=== PATIENT | female | born 2000 | race Caucasian/White ===

== ENCOUNTER 2020-03-19 15:26 | Outpatient (NON) | payer OTHER, SELFPAY | END 2020-03-19 15:27 | LOC: CHSLAB 15:28 | PROVIDERS: Visit Provider Nurse Practitioner Family | DX: Z12.4 Encounter for screening for malignant neoplasm of cervix (principal); Z13.89 Encounter for screening for other disorder | CPT/HCPCS: 87491; 87591; 88175; G0145 ==

== ENCOUNTER 2020-06-25 09:28 | Outpatient (CLI) | payer OTHER, SELFPAY ==
--- NOTE | ~2020-06-25 | US_ITS ---
US abdomen complete DATE: 06/25/2020 10:02 INDICATION: Mid abdominal pain TECHNIQUE: Real-time imaging and Doppler evaluation of the abdomen. COMPARISON: 04/2015 ultrasound abdomen FINDINGS: No pancreatic mass lesion is evident. Normal hepatopedal portal venous flow direction. 8 x 11 x 16 mm hypoechoic area of the left hepatic lobe, possibly a hemangioma or fatty infiltration. Otherwise no Hepatic space-occupying mass lesion is evident. 3.5 mm gallbladder polyp. No gallstones or gallbladder wall thickening or abnormal pericholecystic fl uid is evident. Negative sonographic Savage's sign. Common bile duct measures 3 mm, normal. Abdominal aorta is of normal caliber. Flow is demonstrated in the inferior vena cava. Normal splenic size. Right kidney 10.2 cm length, left kidney 11.3 cm. No hydronephrosis of either kidney is evident. IMPRESSION: 3.5 mm gallbladder polyp 8 x 11 x 16 mm hyperechoic left hepatic lesion; consider hemangioma or focal fatty infiltration Reviewed, dictated and finalized at [facility]. Reviewed, dictated and finalized at [facility]. IMPRESSION: 3.5 mm gallbladder polyp 8 x 11 x 16 mm hyperechoic left hepatic lesion; consider hemangioma or focal fa tty infiltration
== END 2020-06-25 09:29 | disposition home or self-care (01) ==
LOC: CHSIMG 09:31
PROVIDERS: PCP Nurse Practitioner Family; Visit Provider Nurse Practitioner Family
DX: R10.9 Unspecified abdominal pain (principal)
CPT/HCPCS: 76700

== ENCOUNTER 2020-06-26 10:12 | Outpatient (CLI) | payer OTHER, SELFPAY ==
[2020-06-26 10:36] LABS: Basophils Absolute Auto 0.04 K/mm3 (0.00-0.10); Basophils Percent Auto 0.4 % (0.0-1.0); Eosinophils Absolute Auto 0.26 K/mm3 (0.02-0.50); Eosinophils Percent Auto 2.7 % (1.0-6.0); Hematocrit 43.5 % (35.0-49.0); Immature Granulocyte Absolute 0.03 K/mm3 (0.00-0.00); Immature Granulocyte Percent A 0.3 % (0.0-0.0); Lymphocytes Absolute Auto 2.28 K/mm3 (1.10-4.50); Lymphocytes Percent Auto 23.9 % (18.0-42.0); Mean Corpuscular HGB Conc 34.5 g/dL (32.0-36.0); Mean Corpuscular Hemoglobin 30.2 pg (27.0-31.0); Mean Corpuscular Volume 87.5 fL (78.0-102.0); Mean Platelet Volume 10.2 fl (9.2-11.8); Monocytes Absolute Auto 0.64 K/mm3 (0.10-0.90); Monocytes Percent Auto 6.7 % (2.0-11.0); Neutrophils Absolute Auto 6.3 K/mm3 (1.7-7.2); Platelet Count Result 341 K/mm3 (150-420); Red Blood Count 4.97 M/mm3 (4.20-5.40); Red Cell Distribution Width 11.9 % (11.6-14.4); White Blood Count 9.5 K/mm3 (4.8-10.8)
[2020-06-26 11:32] LABS: Alanine Aminotransferase 26 U/L (14-59); Albumin Level 4.4 g/dL (3.4-5.0); Alkaline Phosphatase 63 U/L (46-116); Amylase 39 U/L (25-115); Anion Gap 11 mmol/L (8-16); Aspartate Amino Transferase 13 U/L (15-37); Bilirubin,Total 0.4 mg/dL (0.00-1.00); Blood Urea Nitrogen 12 mg/dL (7-18); Calcium 9.2 mg/dL (8.5-10.1); Carbon Dioxide 26 mmol/L (21-32); Chloride 103 mmol/L (98-108); Estimated Glomerular Filt Rate > 60; Glucose 84 mg/dL (70-99); Lipase 86 U/L (73-393); Osmolality Calculated 288 mOsm/kg (285-295); Potassium 4.1 mmol/L (3.5-5.1); Sodium 140 mmol/L (136-145); Total Protein 7.5 g/dL (6.4-8.2)
== END 2020-06-26 10:13 | disposition home or self-care (01) ==
LOC: CHSLAB 10:15
PROVIDERS: PCP Nurse Practitioner Family; Visit Provider Nurse Practitioner Family
DX: R10.9 Unspecified abdominal pain (principal)
CPT/HCPCS: 36415; 80053; 82150; 83690; 85025

== ENCOUNTER 2020-08-25 17:22 | Emergency (ER) | payer OTHER, SELFPAY ==
--- NOTE | ~2020-08-25 | CT_ITS ---
EXAMINATION: CT diagnostic chest wo con DATE: 08/25/2020 19:56 INDICATION: left pleurisy. LEFT SIDE CP TECHNIQUE: Computed tomography (CT) of the chest was performed without intravenous contrast. Addition al 3D reconstructions utilizing coronal maximum intensity projection (MIP) were performed. Automated exposure control and iterative reconstruction technique were employed. The dose-length product was 15 7.91 mGy-cm. COMPARISON: None FINDINGS: Lungs are clear with no pneumonia, pulmonary edema or other pulmonary infiltrates. No pleural effusio n or pneumothorax. Heart size is normal. Small pericardial effusion. Thoracic aorta is normal in saturnino sarahy. No pathologically enlarged thoracic lymphadenopathy. Visualized upper abdomen is unremarkable. M ild pectus excavatum. IMPRESSION: 1. Small pericardial effusion. Clear lungs. Reviewed, dictated and finalized at location [facility].
[2020-08-25 18:13] VITALS: BP 128/79; PULSE 83; RESP 18; TEMP 36.6; O2SAT 100
--- NOTE | 2020-08-25 18:41 | ECG_ITS ---
Measurements Intervals Thompson Rate: 66 P: 3 AL: 197 QRS: 81 QRSD: 94 T: 21 QT: 361 QTc: 379 Interpretive Statements SINUS RHYTHM WITH MARKED SINUS ARRHYTHMIA INCOMPLETE RIGHT BUNDLE BRANCH BLOCK BASELINE ARTIFACT- III, AVF, V2 BORDERLINE ECG Electronically Signed On 08-26-2020 20:42:38 CDT by Maragrito Lozada D.O.
[2020-08-25 19:01] LABS: Basophils Absolute Auto 0.06 K/mm3 (0.00-0.10); Basophils Percent Auto 0.5 % (0.0-1.0); Eosinophils Absolute Auto 0.34 K/mm3 (0.02-0.50); Eosinophils Percent Auto 3.1 % (1.0-6.0); Hematocrit 43.8 % (35.0-49.0); Hemoglobin 14.8 g/dL (12.0-15.0); Immature Granulocyte Absolute 0.02 K/mm3 (0.00-0.00); Immature Granulocyte Percent A 0.2 % (0.0-0.0); Lymphocytes Absolute Auto 2.39 K/mm3 (1.10-4.50); Lymphocytes Percent Auto 21.8 % (18.0-42.0); Mean Corpuscular HGB Conc 33.8 g/dL (32.0-36.0); Mean Corpuscular Hemoglobin 30.3 pg (27.0-31.0); Mean Corpuscular Volume 89.6 fL (78.0-102.0); Mean Platelet Volume 9.9 fl (9.2-11.8); Monocytes Absolute Auto 0.64 K/mm3 (0.10-0.90); Monocytes Percent Auto 5.8 % (2.0-11.0); Neutrophils Absolute Auto 7.5 K/mm3 (1.7-7.2); Neutrophils Percent Auto 68.6 % (50.0-70.0); Platelet Count Result 355 K/mm3 (150-420); Red Blood Count 4.89 M/mm3 (4.20-5.40); Red Cell Distribution Width 11.9 % (11.6-14.4)
--- NOTE | 2020-08-25 19:02 | PC.NURSE ---
pt state she is allergic to all NSAIDS, allergy updated and edp aware.
[2020-08-25 19:21] LABS: Alanine Aminotransferase 18 U/L (14-59); Albumin Level 3.8 g/dL (3.4-5.0); Alkaline Phosphatase 58 U/L (46-116); Anion Gap 13 mmol/L (8-16); Aspartate Amino Transferase < 10 U/L (15-37); Bilirubin,Total 0.3 mg/dL (0.00-1.00); Blood Urea Nitrogen 13 mg/dL (7-18); Calcium 8.8 mg/dL (8.5-10.1); Carbon Dioxide 25 mmol/L (21-32); Chloride 105 mmol/L (98-108); Estimated CRCL calculation 69 ml/min; Estimated Glomerular Filt Rate > 60; Glucose 82 mg/dL (70-99); NT Pro B Type Natriuretic Pept 57 pg/mL (0-125); Osmolality Calculated 295 mOsm/kg (285-295); Potassium 3.8 mmol/L (3.5-5.1); Sodium 143 mmol/L (136-145)
--- NOTE | 2020-08-25 19:21 | ED.CHESTPAIN ---
HPI - Chest Pain General Chief Complaint: Chest Pain Stated Complaint: CHEST PAIN Time Seen by Provider: 08/25/20 18:15 Source: patient Mode of arrival: ambulatory Limitations: no limitations History of Present Illness HPI narrative: lateral left chest pleuritic pain x 2 days. pt is a weed smoker. complaint: chest pain Onset (ago): day(s) Timing of current episode: constant Prior episodes: No Onset: during exertion and associated with drug use Pain location: left chest Pain radiation: back Severity: severe Pain scale (0-10): 8 Quality: aching, heaviness and sharp Relieving factors: nothing Exacerbating factors: exertion and inspiration Treatment prior to arrival: none Related Data Allergies Allergy/AdvReac Type Severity Reaction Status Date / Time ibuprofen Allergy Mild Anaphylaxis Verified 06/21/20 09:13 NSAIDS (Non-Steroidal Allergy Anaphylactic Verified 08/25/20 19:03 Anti-Inflamma Shock Review of Systems Review of Systems: All systems reviewed & are unremarkable except as noted in HPI and below Constitutional: Constitutional: Reports as per HPI and Reports no additional constitutional complaints Eyes: Eyes: Reports as per HPI and Reports no additional eye complaints ENT: Reports system reviewed and no additional complaints, except as documented and Reports as per HPI Cardiovascular: Cardiovascular: Reports as per HPI, Reports no additional cardiovascular complaints and Reports chest pain Respiratory: Respiratory: Reports as per HPI and Reports no additional respiratory complaints Gastrointestinal: Gastrointestinal: Reports as per HPI and Reports no additional gastrointestinal complaints Genitourinary: Genitourinary: Reports no additional female genitourinary complaints and Reports as per HPI Musculoskeletal: Musculoskeletal: Reports no additional musculoskeletal complaints, Reports as per HPI and Reports back pain Integumentary/Breasts: Skin/Breast: Reports system reviewed and no additional complaints, except as docu and Reports as per HPI Neurologic: Reports system reviewed and no additional complaints, except as documented and Reports as per HPI Psychiatric: Psychiatric: Reports no additional psychiatric complaints and Reports as per HPI Endocrine: Endocrine: Reports no additional endocrine complaints and Reports as per HPI Hematologic/Lymphatic: Hematologic/Lymphatic: Reports no additional hematologic/lymphatic complaints and Reports as per HPI Allergic/Immunologic: Allergic/Immunologic: Reports no additional allergic/immunologic complaints and Reports as per HPI PMFSH Past Medical History Medical History (Updated 08/25/20 @ 20:39 by Lisy Day MD) Dysmenorrhea Foot pain GERD (gastroesophageal reflux disease) Migraine NOS/intractable Surgical History Surgical History No history of previous surgery Family History Family History Mother Healthy adult Father Healthy adult FHx: migraine headaches Social History Social History Smoking status: Current every day smoker Tobacco type: e-cigarettes/vaping Alcohol intake: never Substance use: never Substance use type: marijuana Additional living arrangements comments: with parents Gender identity (if verbalized by the patient): Female Spiritual care concerns: No Exam Const: General: healthy appearing, no acute distress and alert Nutritional Appearance: well nourished and thin Orientation/consciousness: patient oriented x3 HENMT: Head: normal to inspection Ears: external ears normal and TM's normal bilaterally General nose exam: Normal external nose present and Normal nares present Face and sinus: normal facial exam Mouth: Yes lip normal and Yes moist mucous membranes Teeth and gingiva: dentition normal Throat: posterior oropharynx normal
[2020-08-25 19:22] LABS: Troponin I < 4.0 ng/L (0.00-60.4)
[2020-08-25] MEDS: KETOROLAC (*BKC) 60 MG/2 ML VIAL IM (19:38)
[2020-08-25 19:43] LABS: Pregnancy On Board Control Positive; Urine Pregnancy Test Negative
[2020-08-25 20:40] VITALS: BP 120/82; PULSE 82; RESP 20; O2SAT 98
== END 2020-08-25 20:47 | disposition home or self-care (01) ==
PROVIDERS: Emergency Provider Emergency Medicine; PCP Nurse Practitioner Family
DX: R07.89 Other chest pain (principal); R09.1 Pleurisy; J40 Bronchitis, not specified as acute or chronic; I31.3 Pericardial effusion (noninflammatory)
CPT/HCPCS: 36415; 71250; 80053; 81025; 83880; 84484; 85025; 93005; 96372; 99283; 99284; J1885

== ENCOUNTER 2020-09-13 12:59 | Outpatient (CLI) | payer OTHER, SELFPAY ==
--- NOTE | 2020-09-13 13:03 | ECHO_ITS ---
Patient Info Name: Zari Lopez Age: 20 years : 2000 Gender: Female Ht: 70 in Wt: 123 lbs BSA: 1.64 m2 HR: 70 bpm BP: 120 / 70 mmHg Heart Rhythm: Sinus Rhythm Technical Quality: Good Exam Date: 09/13/2020 1:11 PM Exam Location: [facility] Patient Status: Outpatient Admit Date: 09/13/2020 Staff Ordering Physician: Jeana Rueda NP Paleontology Teacher: Cris Arias RDCS Attending Provider: Jeana Rueda NP Referring Physician: Mohit PORRAS; Exam Type: CA echo doppler color flow Study Info Indications I30.9 - Acute pericarditis, unspecified - pt could not stand pressure of probe for apical views. unobtainable no measurements no biplane Complete two-dimensional, color flow and Doppler transthoracic echocardiogram is performed. Summary 1. Complete two-dimensional, color flow and Doppler transthoracic echocardiogram is performed. 2. Left ventricular chamber dimension is normal. 3. Left ventricular systolic function is normal, estimated at 50-55%. 4. The left ventricular diastolic function is normal. 5. E/e' 5 is not elevated. 6. There is trace mitral valve regurgitation. 7. There is trace pulmonic regurgitation. Left Ventricle E/e' 5 is not elevated. Left ventricular chamber dimension is normal. Left ventricular systolic function is normal, estimated at 50-55%. The left ventricular diastolic function is normal. Right Ventricle Right ventricular chamber dimension is not well visualized. Left Atria Left atrial chamber dimension is normal. Right Atria Right atrial chamber dimension is normal. Aortic Valve The aortic valve is trileaflet. There is no aortic valve stenosis. There is no aortic valve regurgitation. Pulmonic Valve There is trace pulmonic regurgitation. Mitral Valve There is no mitral valve stenosis. There is trace mitral valve regurgitation. Tricuspid Valve There is no tricuspid valve regurgitation. Pericardium/Pleural There is no pericardial effusion. Inferior Vena Cava Inferior vena cava is not well visualized. Aorta The aortic root size at the sinus of Valsalva is normal. Left Ventricular Outflow Tract Name Value Normal LVOT 2D LVOT Diameter 1.8 cm LVOT Doppler LVOT Peak Velocity 74 cm/s LVOT Peak Gradient 2 mmHg LVOT Mean Gradient 1 mmHg LVOT VTI 13 cm LVOT VTI/AV VTI Ratio 0.7 LVOT Stroke Volume 35 ml Pulmonic Valve Name Value Normal RVOT Doppler RVOT Peak Gradient 1 mmHg PV Doppler PV Peak Velocity 71 cm/s PV Peak Gradient 2 mmHg Mitral Va
== END 2020-09-13 13:00 | disposition home or self-care (01) ==
LOC: CHSIMG 13:00
PROVIDERS: PCP Nurse Practitioner Family; Visit Provider Nurse Practitioner Family
DX: I30.9 Acute pericarditis, unspecified (principal)
CPT/HCPCS: 93306

== ENCOUNTER 2020-11-07 14:22 | Emergency (ER) | payer OTHER, SELFPAY ==
--- NOTE | 2020-11-07 14:35 | ED.NAVMDI ---
HPI - Nausea/Vomiting/Diarrhea General Chief complaint: Nausea/Vomiting/Diarrhea Stated complaint: vomiting since 10 am Time Seen by Provider: 11/07/20 14:35 Source: patient and family Mode of arrival: ambulatory Limitations: no limitations History of Present Illness HPI Narrative: [age] woman with a history of migraines and pericarditis comes emergency department complaining of nausea vomiting and dizziness that started approximately 10:00 a.m. this morning. Patient states she has never had symptoms like this before. She is now having dry heaves having vomited everything she has 8 recently. She states she may have had some coffee-ground appearing vomitus but denies having any blood in her vomitus, diarrhea, fever, cough or cold symptoms, headache, chest pain, abdominal pain, dysuria or sick exposures. Patient states that she smokes marijuana daily. Patient revealed to the nurse that she has had some suicidal thoughts as of late. The patient denies she has a plan and that the thoughts are intermittent. Her mother states the suicidal thoughts seem to come when she is overwhelmed and highly anxious. MD elicited complaint: nausea and vomiting Onset (ago): hour(s) (4) Description of vomiting: food contents Exacerbating factors: none Relieving factors: none Context: marijuana use Associated symptoms: nausea/vomiting and other (Dizziness, both vertiginous and feeling off balance.) Related Data Home Medications Medication Instructions Recorded Confirmed fluoxetine 20 mg capsule 20 mg PO DAILY cap 09/24/20 11/07/20 Allergies Allergy/AdvReac Type Severity Reaction Status Date / Time ibuprofen Allergy Mild Anaphylaxis Verified 09/24/20 13:50 NSAIDS (Non-Steroidal Allergy Anaphylactic Verified 09/24/20 13:50 Anti-Inflamma Shock Review of Systems Review of Systems: All systems reviewed & are unremarkable except as noted in HPI and below Constitutional: Constitutional: Denies chills and Denies fever(s) Eyes: Eyes: Denies change in vision and Denies photophobia ENT: Denies nasal congestion and Denies sore throat Cardiovascular: Cardiovascular: Denies chest pain and Denies radiating jaw, neck or arm pain Respiratory: Respiratory: Denies cough, Denies dyspnea and Denies wheezing Gastrointestinal: Gastrointestinal: Denies abdominal pain, Denies diarrhea, Reports nausea and Reports vomiting Genitourinary: Genitourinary: Denies nocturia and Denies dysuria Musculoskeletal: Musculoskeletal: Denies arthralgias and Denies joint swelling Integumentary/Breasts: Skin/Breast: Denies pruritus, Denies erythema and Denies rash Neurologic: Denies vertigo, Denies dizziness and Denies syncope Hematologic/Lymphatic: Hematologic/Lymphatic: Denies easy bleeding and Denies easy bruising Allergic/Immunologic: Allergic/Immunologic: Denies lip swelling, Denies throat swelling and Denies tongue swelling PMFSH Past Medical History Medical History (Updated 11/07/20 @ 16:57 by Aneudy Liu MD) Dysmenorrhea Foot pain GERD (gastroesophageal reflux disease) Migraine NOS/intractable Surgical History Surgical History No history of previous surgery Family History Family History Mother Healthy adult Father Healthy adult FHx: migraine headaches Social History Social History Smoking status: Never smoker Tobacco type: e-cigarettes/vaping Alcohol intake: never Substance use: current Substance use type: marijuana Additional living arrangements comments: with parents Gender identity (if verbalized by the patient): Female Spiritual care concerns: No Exam Const: General: healthy appearing and alert Orientation/consciousness: patient oriented x3 Limitations: no limitations Other: Moderate acute distress. HENMT: Ears
[2020-11-07 14:39] VITALS: BP 123/93; PULSE 74; RESP 20; TEMP 36.3; O2SAT 100
[2020-11-07] MEDS: ONDANSETRON INJ 4 MG/2 ML VIAL IV PUSH (14:52)
[2020-11-07] MEDS: SODIUM CHLORIDE 0.9% IV 1,000 ML 999 ML IV CONT ×2 (14:54→16:03)
[2020-11-07 15:14] LABS: Basophils Absolute Auto 0.08 K/mm3 (0.00-0.10); Basophils Percent Auto 0.6 % (0.0-1.0); Eosinophils Absolute Auto 0.05 K/mm3 (0.02-0.50); Eosinophils Percent Auto 0.4 % (1.0-6.0); Hematocrit 42.4 % (35.0-49.0); Hemoglobin 14.8 g/dL (12.0-15.0); Immature Granulocyte Absolute 0.04 K/mm3 (0.00-0.00); Immature Granulocyte Percent A 0.3 % (0.0-0.0); Lymphocytes Absolute Auto 1.67 K/mm3 (1.10-4.50); Lymphocytes Percent Auto 13.2 % (18.0-42.0); Mean Corpuscular HGB Conc 34.9 g/dL (32.0-36.0); Mean Corpuscular Hemoglobin 31.4 pg (27.0-31.0); Mean Corpuscular Volume 89.8 fL (78.0-102.0); Monocytes Absolute Auto 0.46 K/mm3 (0.10-0.90); Monocytes Percent Auto 3.6 % (2.0-11.0); Neutrophils Absolute Auto 10.3 K/mm3 (1.7-7.2); Neutrophils Percent Auto 81.9 % (50.0-70.0); Platelet Count Result 403 K/mm3 (150-420); Red Blood Count 4.72 M/mm3 (4.20-5.40); Red Cell Distribution Width 12.1 % (11.6-14.4); White Blood Count 12.6 K/mm3 (4.8-10.8)
--- NOTE | 2020-11-07 15:28 | PC.NURSE ---
Pt still feeling nauseas and starting to vomit again. Dr. Liu notified.
[2020-11-07 15:30] LABS: Alanine Aminotransferase 31 U/L (14-59); Albumin Level 4.7 g/dL (3.4-5.0); Alkaline Phosphatase 52 U/L (46-116); Anion Gap 14 mmol/L (8-16); Aspartate Amino Transferase 33 U/L (15-37); Bilirubin,Total 0.6 mg/dL (0.00-1.00); Blood Urea Nitrogen 8 mg/dL (7-18); Calcium 9.4 mg/dL (8.5-10.1); Carbon Dioxide 24 mmol/L (21-32); Chloride 106 mmol/L (98-108); Estimated CRCL calculation 87 ml/min; Estimated Glomerular Filt Rate > 60; Glucose 96 mg/dL (70-99); Lipase 102 U/L (73-393); Osmolality Calculated 296 mOsm/kg (285-295); Potassium 3.5 mmol/L (3.5-5.1); Sodium 144 mmol/L (136-145); Total Protein 7.9 g/dL (6.4-8.2)
[2020-11-07 15:35] LABS: Lactic Acid Reflex 1.9 mmol/L (0.4-2.0)
[2020-11-07] MEDS: PROMETHAZINE HCL 25 MG/ML AMPUL IM (15:36)
[2020-11-07 15:58] LABS: SARS-CoV-2 RNA PCR Negative (Negative)
--- NOTE | 2020-11-07 16:26 | PC.NURSE ---
Pt ambulated to restroom. No distress noted. Urine specimen walked to lab.
[2020-11-07 16:27] LABS: Add Urine Microscopic? YES; Appearance Urine Clear (Clear); Bilirubin Urine Negative (Negative); Blood Urine Negative (Negative); Color Urine Light Yellow (Yellow); Glucose Urine UA Negative (Negative); Ketones Urine 2+ (Negative); Leukocyte Esterase Ur Negative LEU/UL (Negative); Nitrate Urine Negative (Negative); Protein Urine 1+ (Negative); Urobilinogen Urine 0.2 mg/dL (0.2-1.0); pH Urine 8.5 (5.0-8.0)
[2020-11-07 16:32] LABS: Pregnancy On Board Control Positive; Urine Pregnancy Test Negative
[2020-11-07 16:33] LABS: Bacteria Urine Trace /hpf; Mucus Urine Few /lpf; RBC Urine None seen /hpf (0-2); Squamous Epithelial Cell Urine Few /hpf (Few); WBC Urine None seen /hpf (0-3)
[2020-11-07 16:34] LABS: Amphetamine Screen Urine Negative (Negative); Barbiturate Screen Urine Negative (Negative); Benzodiazepines Screen Urine Negative (Negative); Cannabinoid Screen Urine Positive (Negative); Cocaine Screen Urine Negative (Negative); Methadone Screen Urine Negative (Negative); Opiate Screen Urine Negative (Negative); Phencyclidine Screen Urine Negative (Negative)
[2020-11-07 17:22] VITALS: BP 143/98; PULSE 60; RESP 16; O2SAT 100
[2020-11-07 17:22] LABS: Acetaminophen < 2 ug/mL (10-30); Ethanol < 3 mg/dL (0-6)
== END 2020-11-07 17:22 | disposition home or self-care (01) ==
PROVIDERS: Emergency Provider Emergency Medicine; PCP Family Medicine
DX: E86.0 Dehydration (principal); R11.2 Nausea with vomiting, unspecified; Z20.822 Contact with and (suspected) exposure to COVID-19
CPT/HCPCS: 36415; 80053; 80307; 81001; 81025; 83605; 83690; 85025; 87040; 96361; 96372; 96374; 99283; 99284; C9803; J2405; J2550; J7030; U0003; U0005

== ENCOUNTER 2021-02-25 12:47 | Emergency (ER) | payer OTHER, SELFPAY ==
[2021-02-25 13:03] VITALS: BP 138/96; PULSE 70; RESP 16; TEMP 36.3; O2SAT 100
--- NOTE | 2021-02-25 14:40 | PC.NURSE ---
Pt seen walking out of ED with steady gait.
== END 2021-02-26 03:50 | disposition left against medical advice (07) ==
PROVIDERS: PCP Family Medicine
DX: R42 Dizziness and giddiness (principal)
CPT/HCPCS: 99199

== ENCOUNTER 2022-05-28 07:14 | Emergency (ER) | payer OTHER, SELFPAY ==
--- NOTE | ~2022-05-28 | XR_ITS ---
Portable chest x-ray Comparison: 11/27/2014 Clinical History: Chest pain Findings: Lungs are clear, without focal consolidation or pleural effusion. Cardiomediastinal silho uette is stable. Bones and soft tissues are unremarkable. Impression: Normal chest. Reviewed, dictated and finalized at location . Impression: Normal chest.
[2022-05-28 07:14] VITALS: PULSE 74
[2022-05-28 07:15] VITALS: BP 136/92; PULSE 73; RESP 18; TEMP 35.6; O2SAT 100
--- NOTE | 2022-05-28 07:20 | ECG_ITS ---
Measurements Intervals Ashley Rate: 63 P: -20 NC: 186 QRS: 77 QRSD: 94 T: 44 QT: 384 QTc: 394 Interpretive Statements SINUS RHYTHM WITH SINUS ARRHYTHMIA OTHERWISE NORMAL ECG COMPARED TO ECG 08/25/2020 19:00:06 NO SIGNIFICANT CHANGES Electronically Signed On 05-29-2022 16:32:22 CDT by Cristobal Mejia M.D.
[2022-05-28] MEDS: ACETAMINOPHEN 500 MG TABLET 1000 MG PO (07:27)
--- NOTE | 2022-05-28 07:27 | ED.GENADULT ---
HPI - General Adult General Chief complaint: Chest Pain Stated complaint: abdominal pain Time Seen by Provider: 05/28/22 07:27 History of Present Illness HPI narrative: This is a 22 year at 18 weeks presenting ED with a chief complaint epigastric pain. Patient says that when she woke from sleep she was having pain in the epigastric area. It is a sharp pain, 6/10, and is associated with pain in her collarbone. patient states that she has had pain like this collarbone every couple months for the last several years. The abdominal pain feels similar to abdominal pain she had several years ago when she was dx'd w/ gastritis/gerd although she says it is different now because it is constant and before it would come and go. Patient denies fever chills URI symptoms, nausea/vomiting/diarrhea. She denies urinary symptoms, vaginal discharge/bleeding. The patient does have history of anxiety/panic attacks. Patient was recently let go of her job and has significant stress at home. Patient taken of her anxiety and mood stabilization medicine when she became . Related Data Home Medications Medication Instructions Recorded Confirmed atogepant 60 mg tablet (Qulipta) 60 mg PO DAILY 08/26/21 03/13/22 Allergies Allergy/AdvReac Type Severity Reaction Status Date / Time ibuprofen Allergy Mild Anaphylaxis Verified 05/15/22 15:21 NSAIDS (Non-Steroidal Allergy Anaphylactic Verified 05/15/22 15:21 Anti-Inflamma Shock [facility] Past Medical History Medical History Dysmenorrhea Foot pain GERD (gastroesophageal reflux disease) Migraine NOS/intractable Vasovagal syncope Surgical History Surgical History No history of previous surgery Family History Family History Mother Healthy adult Father Healthy adult FHx: migraine headaches Other Asthma Depression Diabetes mellitus Hypertension Social History Social History Smoking status: Never smoker Tobacco type: e-cigarettes/vaping Alcohol intake: never Substance use: current Substance use type: marijuana Lack of Transportation: No Lack of Food: Never True Current Housing: I Have Housing Concerned About Future Housing: No Difficulty Paying Gas/Electric Bills: No Difficulty Paying for Meds: No Currently Unemployed: No Education: High School Diploma/GED Difficulty w/ Childcare or Family Care: No Living arrangements: with family Additional living arrangements comments: with parents Occupation/Education: unemployed Gender identity (if verbalized by the patient): Female Spiritual care concerns: No Exam Narrative: APPEARANCE: Patient is tearful Head: atraumatic. EYES: EOMI, NOSE: Atraumatic NECK: Trachea midline RESPIRATORY: No increased rate of breathing, clear to auscultation bilaterally CARDIOVASCULAR: RRR, no peripheral edema ABDOMINAL: tenderness to palpation in the epigastric area, The rest the abdomen is soft nontender no guarding or rebound. MUSCULOSKELETAl: No obvious deformities NEURO: Alert. Moving 4/4 extremities SKIN:: Warm, dry. Normal color PSYCHIATRIC: Anxious appearing Course Course Emergency Course: Zych 0800: Signed out to the oncoming physician pending completion of workup. Vital Signs Vital signs: Vital Signs Temperature 35.6 C L 05/28/22 07:15 Pulse Rate 73 05/28/22 07:15 Respiratory Rate 18 05/28/22 07:15 Blood Pressure 136/92 H 05/28/22 07:15 Pulse Oximetry 100 05/28/22 07:15 Oxygen Delivery Room Air 05/28/22 07:15 Temperature 35.6 C L 05/28/22 07:15 Pulse Rate 73 05/28/22 07:15 Respiratory Rate 18 05/28/22 07:15 Blood Pressure 136/92 H 05/28/22 07:15 Pulse Oximetry 100 05/28/22 07:15 Oxygen Delivery Room Air 05/28/22 07:1
[2022-05-28] MEDS: MAG HYDROX/ALUMINUM HYD/SIMETH 30 ML, PHENobarb/HYOSCY/ATROPINE/SCOP 32.4 MG, LIDOCAINE... PO (07:29)
[2022-05-28] MEDS: FAMOTIDINE 20 MG/ISO 50 ML 20 MG/50 ML BAG 100 MG IVPB (07:31)
[2022-05-28] MEDS: SODIUM CHLORIDE 0.9% IV 1,000 ML 999 ML IV CONT (07:33)
[2022-05-28 07:39] LABS: Basophils Absolute Auto 0.06 K/mm3 (0.00-0.10); Basophils Percent Auto 0.6 % (0.0-1.0); Eosinophils Absolute Auto 0.17 K/mm3 (0.02-0.50); Eosinophils Percent Auto 1.7 % (1.0-6.0); Hematocrit 41.2 % (35.0-49.0); Hemoglobin 14.5 g/dL (12.0-15.0); Immature Granulocyte Absolute 0.07 K/mm3 (0.00-0.00); Immature Granulocyte Percent A 0.7 % (0.0-0.0); Lymphocytes Absolute Auto 1.79 K/mm3 (1.10-4.50); Lymphocytes Percent Auto 18.4 % (18.0-42.0); Mean Corpuscular HGB Conc 35.2 g/dL (32.0-36.0); Mean Corpuscular Hemoglobin 31.5 pg (27.0-31.0); Mean Corpuscular Volume 89.6 fL (78.0-102.0); Mean Platelet Volume 9.2 fl (9.2-11.8); Monocytes Absolute Auto 0.47 K/mm3 (0.10-0.90); Monocytes Percent Auto 4.8 % (2.0-11.0); Neutrophils Absolute Auto 7.2 K/mm3 (1.7-7.2); Neutrophils Percent Auto 73.8 % (50.0-70.0); Platelet Count Result 320 K/mm3 (150-420); Red Cell Distribution Width 12.5 % (11.6-14.4); White Blood Count 9.7 K/mm3 (4.8-10.8)
[2022-05-28] MEDS: ONDANSETRON INJ 4 MG/2 ML VIAL IV PUSH (07:45)
[2022-05-28 08:06] LABS: Alanine Aminotransferase 18 U/L (14-59); Albumin Level 3.8 g/dL (3.4-5.0); Alkaline Phosphatase 57 U/L (46-116); Anion Gap 9 mmol/L (8-16); Aspartate Amino Transferase 14 U/L (15-37); Bilirubin,Total 0.4 mg/dL (0.00-1.00); Blood Urea Nitrogen 9 mg/dL (7-18); Carbon Dioxide 29 mmol/L (21-32); Chloride 100 mmol/L (98-108); Estimated CRCL calculation 101 ml/min; Estimated Glomerular Filt Rate > 60; Glucose 90 mg/dL (70-99); Lipase 31 U/L (16-77); Osmolality Calculated 284 mOsm/kg (285-295); Potassium 3.8 mmol/L (3.5-5.1); Sodium 138 mmol/L (136-145); Total Protein 7.8 g/dL (6.4-8.2)
[2022-05-28 08:20] VITALS: BP 121/90; PULSE 60; RESP 18; TEMP 35.6; O2SAT 100
== END 2022-05-28 08:35 | disposition home or self-care (01) ==
LOC: CHSED 08:15
PROVIDERS: Emergency Provider Emergency Medicine; PCP Family Medicine
DX: O26.892 Other specified pregnancy related conditions, second trimester (principal); K29.70 Gastritis, unspecified, without bleeding; Z3A.18 18 weeks gestation of pregnancy
CPT/HCPCS: 36415; 71045; 80053; 83690; 85025; 93005; 96365; 96375; 99284; A9270; J2405; J7030

== ENCOUNTER 2022-08-13 10:02 | Outpatient (CLI) | payer MEDICAID, SELFPAY ==
[2022-08-13 11:29] LABS: Basophils Absolute Auto 0.05 K/mm3 (0.00-0.10); Basophils Percent Auto 0.4 % (0.0-1.0); Eosinophils Percent Auto 0.8 % (1.0-6.0); Hemoglobin 12.4 g/dL (12.0-15.0); Immature Granulocyte Absolute 0.13 K/mm3 (0.00-0.00); Lymphocytes Absolute Auto 1.67 K/mm3 (1.10-4.50); Lymphocytes Percent Auto 13.4 % (18.0-42.0); Mean Corpuscular HGB Conc 34.4 g/dL (32.0-36.0); Mean Corpuscular Hemoglobin 32.2 pg (27.0-31.0); Mean Corpuscular Volume 93.5 fL (78.0-102.0); Mean Platelet Volume 9.4 fl (9.2-11.8); Monocytes Absolute Auto 0.62 K/mm3 (0.10-0.90); Neutrophils Absolute Auto 9.9 K/mm3 (1.7-7.2); Neutrophils Percent Auto 79.4 % (50.0-70.0); Platelet Count Result 254 K/mm3 (150-420); Red Blood Count 3.85 M/mm3 (4.20-5.40); Red Cell Distribution Width 12.7 % (11.6-14.4); White Blood Count 12.5 K/mm3 (4.8-10.8)
[2022-08-13 12:26] LABS: Glucose 1 Hour PP 50gm Dose 106 mg/dL (70-130)
== END 2022-08-13 10:03 | disposition home or self-care (01) ==
LOC: CHSLAB 10:04
PROVIDERS: PCP Obstetrics & Gynecology; Visit Provider Registered Nurse
DX: Z34.90 Encounter for supervision of normal pregnancy, unspecified, unspecified trimester (principal)
CPT/HCPCS: 36415; 82947; 85025

== ENCOUNTER 2022-08-28 12:34 | Outpatient (CLI) | payer MEDICAID, SELFPAY ==
--- NOTE | ~2022-08-28 | US_ITS ---
EXAMINATION: US OB follow up DATE: 08/28/2022 13:21 INDICATION: Size less than dates. Third trimester. TECHNIQUE: Real-time ultrasound of the pelvis was performed. COMPARISON: None. FINDINGS: There is a single living fetus in vertex presentation. The placenta is fundal. heart rate is 1 32 beats per minute (bpm). The amniotic fluid volume is subjectively normal. The following biometric data were obtained: Biparietal diameter (BPD): 7.9 cm; head circumference (HC): 27.5 cm; abdominal circumference (AC): 24 .5 cm; femur length (FL): 5.6 cm. These measurements are discordant with low FL/BPD ratio. Estimated weight is 1372 g +/- 206 g, which correlates with the 4th percentile when 10/30/22 is used as estimated date of delivery. As single measurements, these parameters are each equal to the following estimated gestational ages: BPD: 34 weeks 5 days. HC: 30 weeks 0 days. AC: 28 weeks 5 days. FL: 29 weeks 4 days. estimated gestational age based solely on measurements from this exam is 30 weeks 0 days +/- 2 weeks 1 days. IMPRESSION: 1. Single living fetus in vertex presentation. 2. Small for gestational age. Estimated weight is 1372 g +/- 206 g, which correlates with the 4th percentile when 10/30/22 is used as estimated date of delivery. 3. Discordant biometrics with low FL/BPD ratio. Reviewed, dictated and finalized at location [facility]. IMPRESSION: 1. Single living fetus in vertex presentation. 2. Small for gestational age. Estimated weight is 1372 g +/- 206 g, whic h correlates with the 4th percentile when 10/30/22 is used as estimated date of delivery. 3. Discordant biometrics with low FL/BPD ratio.
== END 2022-08-28 12:35 | disposition home or self-care (01) ==
LOC: CHSIMG 12:36
PROVIDERS: PCP Obstetrics & Gynecology; Visit Provider Obstetrics & Gynecology
DX: O26.849 Uterine size-date discrepancy, unspecified trimester (principal); O36.5990 Maternal care for other known or suspected poor fetal growth, unspecified trimester, not applicable or unspecified
CPT/HCPCS: 76816

== ENCOUNTER 2022-09-04 15:54 | Outpatient (RCR) | payer MEDICAID, SELFPAY ==
--- NOTE | ~2022-09-04 | US_ITS ---
EXAMINATION: US OB limited, US umbilical doppler DATE: 09/04/2022 18:30 (accession [id number]), 09/04/2022 18:31 (accession [id number]) INDICATION: TECHNIQUE: Real-time transabdominal obstetric ultrasound. Umbilical Doppler ultrasound examination. FINDINGS: No prior studies for comparison. There is a single living fetus in vertex presentation. The placenta is fundal/left without placenta previa. cardiac activity and movement is noted with a heart rate of 129 beats per minute. T he amniotic fluid volume is normal. MASOOD measures 16 cm The following biometric data were obtained: BPD: 71mm corresponds to gestational age 28 weeks 3 days. Head circumference: 286mm corresponds to gestational age 31 weeks 3 days. Abdominal circumference: 247mm corresponds to gestational age 28 weeks 6 days. Femur length: 55mm corresponds to gestational age 29 weeks 1 days. Estimated weight: 1355grams +/- 203grams, 3.7%, although this could be technical given the gilbert mated weight is less than on prior examination dated 08/28/2022..] Umbilical artery pulsed Doppler demonstrates peak systolic to end-diastolic velocity ratios (S/D rati os) of 2.85 (5th percentile = 2.16, 95th percentile = 3.8). IMPRESSION: 1. Single living intrauterine in vertex presentation with an estimated gestational age of 31 weeks 0 days by inititial ultrasound. EDC by initial ultrasound is 11/06/2022. 2. Normal placenta. 3: Normal umbilical Doppler examination. Reviewed, dictated and finalized at location A. IMPRESSION: 1. Single living intrauterine in vertex presentation with an estimat ed gestational age of 31 weeks 0 days by inititial ultrasound. EDC by initial u ltrasound is 11/06/2022. 2. Normal placenta. 3: Normal umbilical Doppler examination.
[2022-09-04 18:05] VITALS: BP 111/70; PULSE 78
--- NOTE | 2022-09-04 18:30 | PC.NURSE ---
Dr Rodriguez called via development writer and informed of doppler measurements and MASOOD. orders to discharge patient to home and remind her of her appointment at [facility] on Thursday.
== END 2022-11-19 11:45 | disposition home or self-care (01) ==
LOC: ANHOBOP 15:54
PROVIDERS: Visit Provider Obstetrics & Gynecology
DX: O36.5930 Maternal care for other known or suspected poor fetal growth, third trimester, not applicable or unspecified (principal); Z3A.32 32 weeks gestation of pregnancy
CPT/HCPCS: 59025; 76815; 76820

== ENCOUNTER 2022-09-25 14:35 | Outpatient (CLI) | payer OTHER, SELFPAY ==
[2022-09-25 14:54] LABS: Basophils Absolute Auto 0.06 K/mm3 (0.00-0.10); Basophils Percent Auto 0.4 % (0.0-1.0); Eosinophils Absolute Auto 0.11 K/mm3 (0.02-0.50); Eosinophils Percent Auto 0.8 % (1.0-6.0); Hematocrit 40.7 % (35.0-49.0); Hemoglobin 14.2 g/dL (12.0-15.0); Immature Granulocyte Absolute 0.16 K/mm3 (0.00-0.00); Immature Granulocyte Percent A 1.1 % (0.0-0.0); Lymphocytes Absolute Auto 1.75 K/mm3 (1.10-4.50); Mean Corpuscular HGB Conc 34.9 g/dL (32.0-36.0); Mean Corpuscular Hemoglobin 32.5 pg (27.0-31.0); Mean Corpuscular Volume 93.1 fL (78.0-102.0); Mean Platelet Volume 9.9 fl (9.2-11.8); Monocytes Absolute Auto 0.72 K/mm3 (0.10-0.90); Monocytes Percent Auto 4.9 % (2.0-11.0); Neutrophils Absolute Auto 11.8 K/mm3 (1.7-7.2); Neutrophils Percent Auto 80.8 % (50.0-70.0); Platelet Count Result 297 K/mm3 (150-420); Red Blood Count 4.37 M/mm3 (4.20-5.40); Red Cell Distribution Width 12.4 % (11.6-14.4); White Blood Count 14.6 K/mm3 (4.8-10.8)
[2022-09-25 15:33] LABS: HIV 1 P24 AG Negative (Negative); HIV 1/2 AB Negative (Negative)
[2022-09-28 16:18] LABS: RPR Screen Non-Reactive (Non-Reactive)
== END 2022-09-25 14:36 | disposition home or self-care (01) ==
LOC: CHSLAB 14:37
PROVIDERS: PCP Obstetrics & Gynecology; Visit Provider Obstetrics & Gynecology
DX: O09.93 Supervision of high risk pregnancy, unspecified, third trimester (principal); Z3A.00 Weeks of gestation of pregnancy not specified
CPT/HCPCS: 36415; 85025; 86592; 87806

== ENCOUNTER 2022-10-09 00:01 | Inpatient (IN) | payer OTHER, SELFPAY ==
[2022-10-09] VITALS (129 sets, daily range): BP systolic 101–141; BP diastolic 46–102; PULSE 54–150; RESP 16; TEMP 36.3–37.2; O2SAT 69–100; BMI 22.8
--- NOTE | 2022-10-09 00:27 | LDADM ---
This patient, Zari Lopez, was admitted to Labor/Delivery/Recovery 107 on 10/09/22 at 00:01. Plans for labor, pain management and were discussed with patient. Patient/family oriented to hospital policies and general routines including ID bracelet, bed and alarms, visiting hours, pain management, procedures, bathroom and other care routines, personal items, smoking policy, room service/diet and guest tray routines, infant security routines, and visiting hours. Patient/Family are encouraged to report perceived risks to care and to ask questions if they do not understand what they are told or what they should do. See OBIX for further documentation.
[2022-10-09 01:11] LABS: Basophils Absolute Auto 0.1 K/mm3 (0.0-0.1); Basophils Percent Auto 0.5 % (0.2-1.2); Eosinophils Absolute Auto 0.4 K/mm3 (0-0.3); Eosinophils Percent Auto 2.2 % (0-4.4); Hematocrit 38.4 % (37.0-47.0); Hemoglobin 13.7 g/dL (12.0-15.0); Immature Granulocyte Absolute 0.14 K/mm3 (0.00-0.031); Immature Granulocyte Percent A 0.9 % (0-0.5); Lymphocytes Absolute Auto 2.31 K/mm3 (0.9-3.2); Lymphocytes Percent Auto 14.7 % (18.3-44.2); Mean Corpuscular HGB Conc 35.7 g/dl (32-36); Mean Corpuscular Volume 92.5 fl (80-100); Mean Platelet Volume 10.3 fl (7.4-10.4); Monocytes Percent Auto 6.2 % (2.6-8.5); Neutrophils Absolute Auto 11.8 K/mm3 (1.3-6.7); Neutrophils Percent Auto 75.5 % (45.5-73.1); Platelet Count Result 298 k/mm3 (150-375); Red Blood Count 4.15 M/mm3 (4.2-5.4); Red Cell Distribution Width 12.3 % (11.5-14.5); White Blood Count 15.7 K/mm3 (4.5-10.0)
[2022-10-09] MEDS: DINOPROSTONE 10 MG VAG INSERT VAGINAL (01:30)
[2022-10-09] MEDS: AMPICILLIN 2 GM/NS 100 ML 2 GM/100 ML BAG IVPB (07:42)
[2022-10-09] MEDS: LACTATED RINGERS 1,000 ML 125 ML IV CONT ×2 (07:43→15:00)
[2022-10-09] MEDS: AMPICILLIN 1 GM/NS 50 ML 1 GM/50 ML BAG IVPB ×2 (11:36→15:28)
[2022-10-09] MEDS: OXYTOCIN 30 UNITS/NS 500 ML 30 UNITS/500 ML BAG 6 UNITS IV CONT (12:09)
[2022-10-09] MEDS: fentaNYL CITRATE INJ (*CRX) 100 MCG/2 ML VIAL 50 MCG IV PUSH (12:35)
[2022-10-09] MEDS: fentaNYL CITRATE INJ (*CRX) 100 MCG/2 ML VIAL IV PUSH (13:50)
--- NOTE | 2022-10-09 14:16 | WPDANESEPP ---
Anes - Eval Pre Procedure Procedure: Labor epidural Date/Time: 10/09/22 14:16 Surgeon: Jennifer Preop Diagnosis: Pain during labor Pre Op Diagnosis: IOL Patient Data Age: 22 Gender: F Height: 1.78 m Weight: 72.1 kg Last Vital Signs Temp 37.2 C 10/09/22 11:00 Pulse 74 10/09/22 14:01 Resp 16 10/09/22 05:33 BP 132/86 10/09/22 14:01 O2 Del Method Room Air 10/09/22 00:27 Allergies Allergy/AdvReac Type Severity Reaction Status Date / Time ibuprofen Allergy Mild Anaphylaxis Verified 10/02/22 15:14 NSAIDS (Non-Steroidal Allergy Anaphylactic Verified 10/02/22 15:14 Anti-Inflamma Shock Home Medications Medication Instructions Recorded Confirmed Type vitamin#17-carbonyl 1 tablet PO DAILY 10/01/22 10/01/22 History [id number] 90 mg-1 mg-50 mg tablet Laboratory Tests 10/09/22 01:04 WBC 15.7 H K/mm3 (4.5-10.0) RBC 4.15 L M/mm3 (4.2-5.4) Hgb 13.7 g/dL (12.0-15.0) Hct 38.4 % (37.0-47.0) MCV 92.5 fl (80-100) MCH 33.0 pg (26-34) MCHC 35.7 g/dl (32-36) RDW 12.3 % (11.5-14.5) Plt Count 298 k/mm3 (150-375) MPV 10.3 fl (7.4-10.4) Immature Gran % (Auto) 0.9 H % (0-0.5) Neut % (Auto) 75.5 H % (45.5-73.1) Lymph % (Auto) 14.7 L % (18.3-44.2) Morton % (Auto) 6.2 % (2.6-8.5) Eos % (Auto) 2.2 % (0-4.4) Baso % (Auto) 0.5 % (0.2-1.2) Lymph # (Auto) 2.31 K/mm3 (0.9-3.2) Morton # (Auto) 1.0 H K/mm3 (0.1-0.6) Eos # (Auto) 0.4 H K/mm3 (0-0.3) Baso # (Auto) 0.1 K/mm3 (0.0-0.1) Abs Immat Gran (auto) 0.14 H K/mm3 (0.00-0.031) Absolute Neuts (auto) 11.8 H K/mm3 (1.3-6.7) Absolute Nucleated RBC 0.0 K/mm3 (0.0-0.012) Nucleated RBC % 0.0 % (0.0-0.2) RPR Pending Blood Type O Positive Antibody Screen Negative Patient hx anesthesia problems: none Family hx anesthesia problems: none Results Review: All pre-operative results and documents have been reviewed as part of the pre-operative evaluation. [facility] Past Medical History Medical History Dysmenorrhea Foot pain GERD (gastroesophageal reflux disease) Migraine NOS/intractable Vasovagal syncope Surgical History Surgical History No history of previous surgery Family History Family History Mother Healthy adult Father Healthy adult FHx: migraine headaches Other Asthma Depression Diabetes mellitus Hypertension Social History Social History Smoking status: Never smoker Tobacco type: e-cigarettes/vaping Second hand tobacco smoke exposure: No Alcohol intake: never Substance use: never Substance use type: marijuana Lack of Transportation: No Lack of Food: Never True Current Housing: I Do Not Have Housing Concerned About Future Housing: No Difficulty Paying Gas/Electric Bills: No Difficulty Paying for Meds: No Currently Unemployed: No Education: High School Diploma/GED Difficulty w/ Childcare or Family Care: No Living arrangements: with family Additional living arrangements comments: with parents Occupation/Education: occupation Gender identity (if verbalized by the patient): Female Sexual Orientation (if Verbalized by the Patient): Straight or Heterosexual Spiritual care concerns: No Exam Day of Procedure 10/09/22 14:16 Patient weight: normal Heart: regular rate and rhythm Lungs: clear to auscultation Airway: Mallampati scale class II Neurological: alert and oriented
[2022-10-09 17:04] LABS: Rapid Plasma Reagin Non-Reactive (NonReactive)
--- NOTE | 2022-10-09 19:27 | P.PCNOB_ITS ---
OB - Delivery Note Procedure Delivery date: 10/09/22 Procedure: Spontaneous vaginal delivery Events: Intrauterine Growth Restriction (IUGR) Induction method: AROM and Per Misoprostol Protocol Delivery augmentation: Rupture of Membranes and Pitocin Delivery monitor: External FHT Route of delivery: Laceration Description: None Specimen: Yes (placenta and cord) Quantitative Blood Loss (ml): 150 Anesthesia type: Epidural Disposition: Floor Complications: None Narrative: She was admitted IUGR. She had cervidil. Ampicillin started for GBS carrier. She had AROM at approximately 1130. Clear fluid. Cervidil removed at that time. Pitocin subsequently started. She dilated to complete and delivered a male infant. Tight nuchal cord surgicall y reduced. Placenta delivered spontaneously and intact. No lacerations. Baby Date of : 10/09/22 Time of : 19:18 Weeks of gestation at delivery: 37 gender: Male presentation: vertex position: Left Occiput Anterior Placenta delivery description: Spontaneous Cord Vessel Description: 3 Vessels, Tight and Reduced (surgically) score one minute: 8 score five minutes: 9 AMG Delivery Billing Delivery Delivery: Delivery Charge
--- NOTE | 2022-10-09 19:30 | PM.IMHP ---
H&P: HPI History of Present Illness Date/Time: 10/09/22 19:30 Chief Complaint: MIL Narrative: Patient at 37 weeks by 9 week ultrasound not consistent with last. Admitted for severe IUGR. course also significant for having a history of vasovagal symptoms and she had also had a history of pericarditis with questionable heart findings. 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 Not had any type cardiac symptoms during . She has a history of migraines which did not cause any significant issues during . She has been followed by Neurology. Also history of anxiety depression which she self stopped her medication when she found out she was and did not have any problems or concerns with it during . She has been followed for IUGR and has had reassuring testing and recommendation for delivery at 37 weeks. History of marijuana use which she has stopped during the . GBS performed last week and was positive. Review of Systems Review of Systems: All systems reviewed & are unremarkable except as noted in HPI and below Constitutional: Constitutional: Reports no additional constitutional complaints and Denies headache(s) Eyes: Eyes: Denies spots in vision ENT: Reports system reviewed and no additional complaints, except as documented and Denies headache(s) Cardiovascular: Cardiovascular: Denies chest pain and Denies dyspnea Respiratory: Respiratory: Denies dyspnea Gastrointestinal: Gastrointestinal: Reports no additional gastrointestinal complaints Genitourinary: Genitourinary: Reports amenorrhea Musculoskeletal: Musculoskeletal: Reports no additional musculoskeletal complaints Integumentary/Breasts: Skin/Breast: Denies breast mass and Denies rash Neurologic: Denies headache(s) Psychiatric: Psychiatric: Reports no additional psychiatric complaints [facility] Past Medical History Medical History Dysmenorrhea Foot pain GERD (gastroesophageal reflux disease) Migraine NOS/intractable Vasovagal syncope Surgical History Surgical History No history of previous surgery Family History Family History Mother Healthy adult Father Healthy adult FHx: migraine headaches Other Asthma Depression Diabetes mellitus Hypertension Social History Social History Smoking status: Never smoker Tobacco type: e-cigarettes/vaping Second hand tobacco smoke exposure: No Alcohol intake: never Substance use: never Substance use type: marijuana Lack of Transportation: No Lack of Food: Never True Current Housing: I Do Not Have Housing Concerned About Future Housing: No Difficulty Paying Gas/Electric Bills: No Difficulty Paying for Meds: No Currently Unemployed: No Education: High School Diploma/GED Difficulty w/ Childcare or Family Care: No Living arrangements: with family Additional living arrangements comments: with parents Occupation/Education: occupation Gender identity (if verbalized by the patient): Female Sexual Orientation (if Verbalized by the Patient): Straight or Heterosexual Spiritual care concerns: No Meds Home Medications and Allergies Home Medications Medication Instructions Recorded Confirmed Type vitamin#17-carbonyl 1 tablet PO DAILY 10/01/22 10/01/22 History [id number]-[id number]-[id number] 90 mg-1 mg-50 mg tablet Allergies Allergy/AdvReac Type Severity Reaction Status Date / Time ibuprofen Allergy Mild Anaphylaxis Verified 10/02/22 15:14 NSAIDS (Non-Steroidal Allergy Anaphylactic Verified 10/02/22 15:14 Anti-Inflamma Shock Vital Signs Vital Sig
--- NOTE | 2022-10-09 19:31 | PM.OBPNVD ---
OB - PN: Subj Subjective Date/time seen: 10/09/22 1130 Interval history: fht 125, Cat 1, cervix 1.5/70/-1, AROM clear. OB - PN: Obj Data Labs 10/09/22 01:04 Labs: Laboratory Results - last 24 hr 10/09/22 01:04 WBC 15.7 H RBC 4.15 L Hgb 13.7 Hct 38.4 MCV 92.5 MCH 33.0 MCHC 35.7 RDW 12.3 Plt Count 298 MPV 10.3 Immature Gran % (Auto) 0.9 H Neut % (Auto) 75.5 H Lymph % (Auto) 14.7 L Caswell % (Auto) 6.2 Eos % (Auto) 2.2 Baso % (Auto) 0.5 Lymph # (Auto) 2.31 [place]well # (Auto) 1.0 H Eos # (Auto) 0.4 H Baso # (Auto) 0.1 Abs Immat Gran (auto) 0.14 H Absolute Neuts (auto) 11.8 H Absolute Nucleated RBC 0.0 Nucleated RBC % 0.0 RPR Non-reactive Blood Type O Positive Antibody Screen Negative OB - PN A/P Time Spent With Patient Time: Total time spent is greater than 50% in coordination of care (as documented) at patient's floor/unit and/or counseling patient:
[2022-10-09] MEDS: OXYTOCIN 30 UNITS/NS 500 ML 30 UNITS/500 ML BAG 125 UNITS IV CONT (19:49)
--- NOTE | 2022-10-09 22:22 | OBPPTRN ---
Patient transferred to post room #292 via w/c. Support person present. Oriented to unit, room, information board, rooming in, admission packet and security measures. Patient verbalizes understanding.
[2022-10-10 04:00] VITALS: BP 115/68; PULSE 52; RESP 18; TEMP 36.7
[2022-10-10 04:42] LABS: Hematocrit 35.6 % (37.0-47.0); Hemoglobin 12.2 g/dL (12.0-15.0)
[2022-10-10] MEDS: ACETAMINOPHEN 325 MG TABLET 650 MG PO ×2 (07:41→16:42)
[2022-10-10 09:10] VITALS: BP 118/68; PULSE 70; RESP 16; TEMP 36.6; O2SAT 100
--- NOTE | 2022-10-10 12:23 | WPDANLDPN2 ---
Anes-Prog Note L&D Date/Time: 10/10/22 12:23 Neuro status: Neuro function grossly intact. Cardiovascular status: normal Respiratory status: normal Airway patency: baseline Mental status: baseline Post-Op hydration status: normal Vital Signs: Last Vital Signs Temp 36.6 C 10/10/22 09:10 Pulse 70 10/10/22 09:10 Resp 16 10/10/22 09:10 BP 118/68 10/10/22 09:10 Pulse Ox 100 10/10/22 09:10 O2 Del Method Room Air 10/10/22 08:00 Pain score (VAS): 0 I/O: Intake & Output 10/09/22 10/10/22 10/10/22 23:59 07:59 15:59 Intake Total 500 Output Total 500 Balance -500 500 Post-procedural complaints: none Patient feedback: Patient satisfied with anesthetic care.
[2022-10-10 12:33] VITALS: BP 123/77; PULSE 62; RESP 18; TEMP 36.7; O2SAT 100
--- NOTE | 2022-10-10 12:51 | PM.OBPNVD ---
OB - PN: Subj Subjective Date/time seen: 10/10/22 12:51 Patient comments: pain well controlled, tolerating diet and other (Decreasing lochia.) baby status: doing well and nursing well OB - PN: Obj Data Labs 10/10/22 04:04 Labs: Laboratory Results - last 24 hr 10/09/22 10/10/22 01:04 04:04 Hgb 12.2 Hct 35.6 L RPR Non-reactive OB - PN A/P Assessment and Plan (1) Vaginal delivery: Code(s): O80 - Encounter for full-term uncomplicated delivery Status: Acute Plan day: 1 Plan: routine care Comments: Patient doing well. Time Spent With Patient Time: Total time spent is greater than 50% in coordination of care (as documented) at patient's floor/unit and/or counseling patient: Exam Psych: Affect: normal affect Other: Abd: fundus firm below -4 umbilicus, nontender Ext: nontender
[2022-10-10 16:50] VITALS: BP 118/79; PULSE 86; RESP 18; TEMP 36.4; O2SAT 98
[2022-10-10 21:00] VITALS: BP 119/79; PULSE 72; RESP 18; TEMP 37; O2SAT 96
[2022-10-11] MEDS: ACETAMINOPHEN 325 MG TABLET 650 MG PO ×2 (00:30→09:58)
--- NOTE | 2022-10-11 08:53 | PM.OBDSVD ---
DS: Admitting Diagnosis Discharge Date 10/11/22 Admitting Diagnosis IOL IUGR DS: Discharge Diagnosis Discharge Diagnosis (1) Vaginal delivery: Code(s): O80 - Encounter for full-term uncomplicated delivery Status: Acute (2) growth restriction antepartum: Code(s): O36.5990 - Maternal care for other known or suspected poor growth, unspecified trimester, not applicable or unspecified Status: Acute (3) Supervision of high risk , unspecified, third trimester: Code(s): O09.93 - Supervision of high risk , unspecified, third trimester Status: Acute OB - DS: Summary OB Procedures : NST and Ultrasound OB Procedures Intrapartum: Spontaneous Vag Delivery OB Procedures: : None Peripartum Data Delivery Method: Natural Vaginal Laceration Description: None complications: none Cotton 1: Gender: Male Disposition of : other (inpatient for feeding/growing) Status at Discharge Functional status at discharge: independent ambulation Overall status at discharge: patient is back to baseline Time Spent with Patient Time attestation: Total time spent providing and/or coordinating discharge services: Time spent: Less than 30 minutes Exam Const: General: cooperative, healthy appearing, comfortable and no acute distress Orientation/consciousness: patient oriented x3 Resp: Effort & Inspection: normal respiratory effort Auscultation: clear to auscultation bilaterally Cardio: Rate: regular rate GI: Inspection: non-distended GI Palp: No abdominal tenderness and Yes Soft to palpation Auscultation: normal bowel sounds : Other: fundus firm Skin: General skin exam: normal color Neuro: General: patient oriented x3 Extrem: General: normal to inspection Psych: Appearance: grossly normal Affect: normal affect Attitude: cooperative DS: Data Data Completed and Pending Pending studies at discharge: Pending at discharge 10/09/22 19:44 Surgical [PTH] Routine Discharge Plan Discharge Attending physician on discharge: Akua Ward Discharging Clinician: Duc Rodriguez Anticipated Discharge Date/Time: 10/11/22 12:00 Patient Disposition: Home, Self-Care Activity: may shower Diet: regular Patient Instructions: Antibiotic Form Stand Alone Forms: General Discharge Information Follow-up/Referrals: Duc Rodriguez MD [Primary Care Provider] - 4 Weeks Discharge Medications: New acetaminophen [Mapap (acetaminophen)] 325 mg Tablet 650 mg PO Q6H PRN (Reason: Mild Pain (1-3) Or Headache) Qty: 60 0RF docusate sodium 100 mg Capsule 100 mg PO BID PRN (Reason: Constipation) Qty: 60 0RF Continued Complete-RF 90-1-50 mg Tablet 1 tablet PO DAILY Date of admission: 10/09/22 00:01 Primary Care Provider: Duc Rodriguez Admitting Provider: Duc Rodriguez Attending physician on admission: Duc Rodriguez Condition: Stable
[2022-10-11 10:00] VITALS: BP 129/83; PULSE 75; RESP 16; TEMP 36.3; O2SAT 100
[2022-10-11] MEDS: WITCH HAZEL 40 PADS 1 PAD TOPICAL (13:30)
[2022-10-13 08:19] VITALS: BP 116/80; PULSE 66; RESP 16; TEMP 36.8; O2SAT 99
== END 2022-10-11 14:58 | disposition home or self-care (01) | DRG 560 ==
LOC: ANHOB2 10-11 13:50 → ANHLDR 10-14 13:56 → ANHOB2 10-14 13:56
PROVIDERS: Admitting Provider Obstetrics & Gynecology; PCP Obstetrics & Gynecology; Visit Provider Obstetrics & Gynecology
DX: O36.5930 Maternal care for other known or suspected poor fetal growth, third trimester, not applicable or unspecified (principal); Z37.0 Single live birth; K21.9 Gastro-esophageal reflux disease without esophagitis; O69.1XX0 Labor and delivery complicated by cord around neck, with compression, not applicable or unspecified; O99.824 Streptococcus B carrier state complicating childbirth; Z3A.37 37 weeks gestation of pregnancy; O99.62 Diseases of the digestive system complicating childbirth; Z86.79 Personal history of other diseases of the circulatory system
CPT/HCPCS: 36415; 85014; 85018; 85025; 86592; 86850; 86900; 86901; 88307; A9270; J0290; J2590; J2795; J3010; J7120

== ENCOUNTER 2023-11-03 12:20 | Emergency (ER) | payer OTHER, SELFPAY ==
[2023-11-03] VITALS (36 sets, daily range): BP systolic 115–151; BP diastolic 75–104; PULSE 0–82; RESP 10–27; TEMP 36–36.8; O2SAT 97–100
--- NOTE | 2023-11-03 12:37 | ED.GENADULT ---
HPI - General Adult General Chief complaint: Nausea/Vomiting/Diarrhea Stated complaint: Nausea Vomiting Time Seen by Provider: 11/03/23 12:36 Source: patient Mode of arrival: ambulatory Limitations: no limitations History of Present Illness HPI narrative: 23-year-old white female complains of nausea vomiting started this morning about 6 hours ago associated with diarrhea. Patient is a poor historian says she drank at least 6 shots of whiskey last night and got drunk. She has had loose watery nonbloody stools this morning about 6 times. Denies any pain. Denies any fever. Denies any exposure to people with similar symptoms, or eating any suspect food. Denies any cough fever sore throat runny nose problems walking talking seeing or hearing. He does feel lightheaded when she sits up or stands up. Denies any problems voiding rash or itching swelling lumps or bumps numbness or tingling weakness or any other complaints. She works at a [employer] and smoked marijuana yesterday. denies any depression anxiety thoughts of suicide or homicidal ideation. She says she has got things going on they are upsetting her but will not say what they are. Related Data Allergies Allergy/AdvReac Type Severity Reaction Status Date / Time ibuprofen Allergy Mild Anaphylaxis Verified 11/03/23 12:26 NSAIDS (Non-Steroidal Allergy Anaphylactic Verified 11/03/23 12:26 Anti-Inflamma Shock Review of Systems Review of Systems: All systems reviewed & are unremarkable except as noted in HPI and below PMFSH Past Medical History Medical History Dysmenorrhea Foot pain GERD (gastroesophageal reflux disease) Migraine NOS/intractable Vasovagal syncope Surgical History Surgical History No history of previous surgery Family History Family History Mother Healthy adult Father Healthy adult FHx: migraine headaches Other Asthma Depression Diabetes mellitus Hypertension Social History Social History (Updated 11/03/23 @ 13:57 by Cristobal Marin MD) Smoking status: Never smoker Second hand tobacco smoke exposure: No Alcohol intake: current Alcohol use details: More than 6 shots of whiskey. Substance use: current Substance use type: marijuana Lack of Transportation: No Lack of Food: Never True Current Housing: I Do Not Have Housing Concerned About Future Housing: No Difficulty Paying Gas/Electric Bills: No Difficulty Paying for Meds: No Currently Unemployed: No Education: High School Diploma/GED Difficulty w/ Childcare or Family Care: No Living arrangements: alone Occupation/Education: occupation Gender identity (if verbalized by the patient): Female Sexual Orientation (if Verbalized by the Patient): Straight or Heterosexual Spiritual care concerns: No Exam Narrative: White female patient with Moderate distress.? Head normocephalic, atraumatic.? Eyes conjunctiva pink sclera nonicteric.? Extraocular movements are intact.? Ears externally normal.? Oropharynx is clear with moist mucous membranes without exudates.? Neck is supple nontender no lymphadenopathy.? Back is nontender.? Lungs are clear.? Heart is regular rate and rhythm without murmurs gallops or rubs.? Chest wall nontender. Abdomen is soft and nontender no hepatosplenomegaly or masses no CVA tenderness no abdominal bruits.? Extremities no cyanosis clubbing or edema.? Skin is warm and dry without rashes or lesions.? Neurological patient is alert and oriented x4.? Motor and sensory grossly intact.? Gait is normal. Course Vital Signs Vital signs: Vital Signs Temperature 36.0 C L 11/03/23 12:28 Pulse Rate 56 L 11/03/23 12:28 Respiratory Rate 20 11/03/23 12:28 Blood Pressure 140/92 H 11/03/23 12:28 Pulse Oximetry 100 11/03/23 12:28 Tem
[2023-11-03 12:49] LABS: Hematocrit 44.2 % (35.0-49.0); Hemoglobin 15.4 g/dL (12.0-15.0); Mean Corpuscular HGB Conc 34.8 g/dL (32-36); Mean Corpuscular Hemoglobin 29.9 pg (27.0-31.0); Mean Corpuscular Volume 85.8 fL (78.0-102.0); Mean Platelet Volume 9.7 fl (9.2-11.8); Platelet Count Result 413 K/mm3 (150-420); Red Blood Count 5.15 M/mm3 (4.20-5.40); Red Cell Distribution Width 12.1 % (11.6-14.4)
[2023-11-03] MEDS: ONDANSETRON INJ 4 MG/2 ML VIAL IV PUSH ×2 (12:49→13:17)
[2023-11-03] MEDS: SODIUM CHLORIDE 0.9% IV 1,000 ML 999 ML IV CONT ×2 (12:50→13:45)
--- NOTE | 2023-11-03 12:55 | PC.NURSE ---
Pt tolerating fluids well. Pt requesting water to drink at this time. Pt verbalized understanding of allowing fluids and antiemetics time to work and resting her stomach from the frequent vomiting experienced prior to arrival. PT did have small emesis in bag after triage.
[2023-11-03 13:06] LABS: Alanine Aminotransferase 21 U/L (14-59); Albumin Level 4.3 g/dL (3.4-5.0); Alkaline Phosphatase 57 U/L (46-116); Anion Gap 10 mmol/L (4-12); Aspartate Amino Transferase 17 U/L (15-37); Bilirubin,Total 0.7 mg/dL (0.00-1.00); Blood Urea Nitrogen 12 mg/dL (7-18); Calcium 9.4 mg/dL (8.5-10.1); Carbon Dioxide 27 mmol/L (21-32); Chloride 105 mmol/L (98-108); Estimated CRCL calculation 79 ml/min; Estimated Glomerular Filt Rate > 60; Glucose 98 mg/dL (70-99); Osmolality Calculated 293 mOsm/kg (285-295); Potassium 3.3 mmol/L (3.5-5.1); Sodium 142 mmol/L (136-145); Total Protein 7.9 g/dL (6.4-8.2)
--- NOTE | 2023-11-03 13:24 | PC.NURSE ---
Pt having small clear emesis in bag. ERP aware. Awaiting quant HCG and further orders. Pt states that Zofran does not normally work for her in the past.
[2023-11-03] MEDS: PROMETHAZINE HCL 25 MG/ML AMPUL 12.5 MG IV PUSH (13:45)
[2023-11-03 13:50] LABS: SPREG INTERNAL CONTROL Positive; Serum Qual hCG Negative
--- NOTE | 2023-11-03 13:58 | PC.NURSE ---
Pt medicated as ordered. Approximately 100 mL clear mucusy emesis with scant light red streak noted. Additional warm blanket offered and declined.
--- NOTE | 2023-11-03 14:03 | PC.NURSE ---
Inquired of patient if there was a concern for ingestion of unknown substance. PT denies this possibility and states that the friend she was drinking with last night has been a friend for 23 years.
--- NOTE | 2023-11-03 14:09 | ECG_ITS ---
Test Date: 2023-11-03 14:19:07 Measurements Intervals [place] Rate: 60 P: 42 WA: 161 QRS: 87 QRSD: 95 T: 65 QT: 406 QTc: 407 Interpretive Statements SINUS RHYTHM WITH MARKED SINUS ARRHYTHMIA INCOMPLETE RIGHT BUNDLE BRANCH BLOCK BASELINE ARTIFACT- V4-V6 BORDERLINE ECG No previous ECG available for comparison Electronically Signed On 11-03-2023 14:18:33 CDT by Margarito Lozada D.O.
[2023-11-03] MEDS: LORazepam INJ (*CRX) 2 MG/ML VIAL 0.5 MG IV PUSH (14:23)
[2023-11-03] MEDS: HALOPERIDOL LACTATE 5 MG/ML VIAL IV PUSH (14:25)
[2023-11-03 14:34] LABS: Ethanol < 3 mg/dL (0-6)
[2023-11-03] MEDS: LACTATED RINGERS 500 ML 999 ML IV CONT (14:53)
--- NOTE | 2023-11-03 15:29 | PC.NURSE ---
Pt notes that her nausea has improved. PT resting with eyes closed and rhythmic breathing.
--- NOTE | 2023-11-03 15:37 | PC.NURSE ---
pt is resting on stretcher, reports she is feeling a little better at this time. no emesis noted since last medication administration. will continue to monitor.
--- NOTE | 2023-11-03 16:45 | PC.NURSE ---
Pt reports feels scared to try anything to drink but nausea right now is okay. ERP aware and will trial ice chips at this time.
[2023-11-03] MEDS: POTASSIUM BICARBONATE 25 MEQ TABEF PO (17:09)
--- NOTE | 2023-11-03 17:16 | PC.NURSE ---
PT calling for ride at this time. Awaiting Rx to be printed/electronically sent by ERP.
== END 2023-11-03 17:54 | disposition home or self-care (01) ==
PROVIDERS: Emergency Provider Emergency Medicine
DX: E86.9 Volume depletion, unspecified (principal); E87.6 Hypokalemia; R11.2 Nausea with vomiting, unspecified
CPT/HCPCS: 36415; 80053; 80307; 84703; 85027; 93005; 96361; 96374; 96375; 99284; A9270; J1630; J2060; J2405; J2550; J7030; J7120

== ENCOUNTER 2024-01-29 13:26 | Outpatient (NON) | payer OTHER, SELFPAY ==
[2024-01-29 13:51] LABS: Add Urine Microscopic? YES; Appearance Urine Clear (Clear); Bilirubin Urine Negative (Negative); Blood Urine Negative (Negative); Color Urine Yellow (Yellow); Glucose Urine UA Negative (Negative); Ketones Urine Negative (Negative); Leukocyte Esterase Ur Negative LEU/UL (Negative); Nitrate Urine Negative (Negative); Protein Urine 1+ (Negative); Specific Grav Ur >= 1.030 (1.010-1.020); Urobilinogen Urine 0.2 mg/dL (0.2-1.0)
[2024-01-29 14:22] LABS: Bacteria Urine Trace /hpf; RBC Urine None seen /hpf (0-2); Squamous Epithelial Cell Urine Few /hpf (Few); WBC Urine None seen /hpf (0-3)
[2024-01-30 10:40] LABS: Bacterial Vaginosis NEGATIVE (NEGATIVE)
== END 2024-01-29 13:27 | disposition home or self-care (01) ==
LOC: CHSLAB 13:28
PROVIDERS: Visit Provider Nurse Practitioner Family
DX: R39.9 Unspecified symptoms and signs involving the genitourinary system (principal)
CPT/HCPCS: 81001; 81513